=== PATIENT | male | born 1950 | race Caucasian/White ===

== ENCOUNTER → 2024-04-22 07:15 | Outpatient (REF) | payer MEDICARE, OTHER, SELFPAY | LOC: MRI 07:15 | PROVIDERS: ATTENDING PHYSICIAN Internal Medicine Rheumatology; FAMILY PHYSICIAN Family Medicine | DX: M43.12 Spondylolisthesis, cervical region (principal); M54.16 Radiculopathy, lumbar region; M54.2 Cervicalgia | CPT/HCPCS: 72141; 72148 ==

== ENCOUNTER → 2024-12-18 14:18 | Outpatient (REF) | payer MEDICARE, OTHER, SELFPAY ==
[2024-12-23 01:13] LABS: HPV, High Risk Not Detected; HPV, High Risk Source Anal
== END ==
LOC: CLAB 14:18
PROVIDERS: ATTENDING PHYSICIAN Surgery
DX: Z11.51 Encounter for screening for human papillomavirus (HPV) (principal)
CPT/HCPCS: 87624; 88112

== ENCOUNTER → 2025-01-08 08:34 | Outpatient (REF) | payer MEDICARE, OTHER, SELFPAY | LOC: RAD 08:34 | PROVIDERS: ATTENDING PHYSICIAN Internal Medicine Rheumatology; FAMILY PHYSICIAN Family Medicine | DX: M79.671 Pain in right foot (principal) | CPT/HCPCS: 73630 ==

== ENCOUNTER 2025-01-30 06:24 | Day surgery (SDC) | payer MEDICARE, OTHER, SELFPAY | END 2025-01-30 13:24 | disposition home or self-care (01) | LOC: GI 06:24 | PROVIDERS: ATTENDING PHYSICIAN Surgery | DX: Z12.11 Encounter for screening for malignant neoplasm of colon (principal); K57.30 Diverticulosis of large intestine without perforation or abscess without bleeding; D12.7 Benign neoplasm of rectosigmoid junction; Z86.0101 Personal history of adenomatous and serrated colon polyps | CPT/HCPCS: 45385; 88305 ==

== ENCOUNTER → 2025-05-11 14:47 | Outpatient (REF) | payer MEDICARE, OTHER, SELFPAY | LOC: RCS 14:47 | PROVIDERS: ATTENDING PHYSICIAN Internal Medicine; FAMILY PHYSICIAN Family Medicine | DX: I34.0 Nonrheumatic mitral (valve) insufficiency (principal); I45.10 Unspecified right bundle-branch block; I10 Essential (primary) hypertension; I34.1 Nonrheumatic mitral (valve) prolapse; I35.1 Nonrheumatic aortic (valve) insufficiency | CPT/HCPCS: 93306 ==